=== PATIENT | female | born 1985 | race Caucasian/White ===

== ENCOUNTER 2017-05-19 13:54 | Outpatient (CLI) | payer OTHER ==
--- NOTE | 2017-05-19 15:48 | XRAY Report ---
DATE OF SERVICE: 05/19/2017 THREE VIEW LEFT KNEE: 05/19/2017 CLINICAL INDICATION: Pain. FINDINGS: AP, lateral, sunrise views of the left knee demonstrate no evidence of fracture or dislocation. The joint spaces are preserved. No effusion is present. IMPRESSION: NORMAL LEFT KNEE. TD: 05/19/2017 16:47
== END 2017-05-19 13:55 | disposition home or self-care (01) ==
LOC: DI 13:54
PROVIDERS: ATTEND Family Medicine
DX: M25.562 Pain in left knee (principal)

== ENCOUNTER 2023-08-17 14:25 | Outpatient (CLI) | payer OTHER ==
[2023-08-17 20:07] LABS: BASOPHILS # (AUTO) 0.1 10^3/uL (0.0-0.1); BASOPHILS % (AUTO) 1.3 %; EOSINOPHILS # (AUTO) 0.3 10^3/uL (0.0-0.7); EOSINOPHILS % (AUTO) 4.7 %; HCT - HEMATOCRIT 37.5 % (37.0-47.0); LYMPHOCYTES # (AUTO) 1.6 10^3/uL (1.5-3.5); LYMPHOCYTES % (AUTO) 30.5 %; MEAN CORPUSCULAR VOLUME 96.9 fL (81.0-99.0); MEAN PLATELET VOLUME 12.4 fL (7.9-10.8); MONOCYTES # (AUTO) 0.6 10^3/uL (0.0-1.0); NEUTROPHILS # (AUTO) 2.8 10^3/uL (1.5-6.6); NEUTROPHILS % (AUTO) 52.3 %; PLT - PLATELET COUNT 241 10^3/uL (130-450); RED BLOOD COUNT 3.87 10^6/uL (4.20-5.40); RED CELL DISTRIBUTION WIDTH 13.2 % (12.0-15.0); WHITE BLOOD COUNT 5.4 x10^3/uL (4.8-10.8)
[2023-08-17 20:32] LABS: THYROID STIMULATING HORMONE 2.23 uIU/mL (0.34-5.60)
[2023-08-17 20:50] LABS: ALBUMIN 4.3 g/dL (3.2-5.5); ALBUMIN/GLOBULIN RATIO 1.6 (1.0-2.2); ALKALINE PHOSPHATASE 49 IU/L (42-121); ALT ALANINE AMINOTRANSFERASE 11 IU/L (10-60); AST ASPARTATE AMINOTRANSFERASE 16 IU/L (10-42); BILIRUBIN,TOTAL 0.3 mg/dL (0.2-1.0); BUN - BLOOD UREA NITROGEN 8 mg/dL (6-20); CALCIUM 9.6 mg/dL (8.5-10.3); CARBON DIOXIDE - CO2 28 mmol/L (21-32); CHLORIDE 102 mmol/L (101-111); CHOL/HDL RATIO 2.5 (<4.4); CHOLESTEROL 168 mg/dL; CREATININE 0.7 mg/dL (0.6-1.3); GFR - MDRD 95 (>89); GLUCOSE 93 mg/dL (74-104); HDL CHOLESTEROL 68 mg/dL; LDL CHOLESTEROL,CALCULATED 85 mg/dL; LDL/HDL RATIO 1.3 (<4.4); POTASSIUM 3.9 mmol/L (3.5-4.5); SODIUM 137 mmol/L (135-145); TRIGLYCERIDES 75 mg/dL (48-352); VLDL CHOLESTEROL 15 mg/dL
== END 2023-08-17 14:26 | disposition home or self-care (01) ==
LOC: LAB.S 14:25
PROVIDERS: ATTEND Physician Assistant Medical
DX: Z13.9 Encounter for screening, unspecified (principal); E55.9 Vitamin D deficiency, unspecified
CPT/HCPCS: 36415; 80053; 80061; 82306; 83721; 84443; 85025

== ENCOUNTER 2023-10-26 14:08 | Outpatient (CLI) | payer BC ==
--- NOTE | 2023-10-26 15:42 | CT Report ---
PROCEDURE: Lumbar Spine WO INDICATIONS: LOW BACK PAIN TECHNIQUE: Noncontrast 3 mm thick sections acquired from the T12 level to the sacrum. Sagittal and coronal refo rmats were constructed. Dedicated oblique axial images were performed through the disk levels. Fo r radiation dose reduction, the following was used: automated exposure control, adjustment of mA and /or kV according to patient size. COMPARISON: Correlation is made with the accompanying imaging. FINDINGS: Image quality: Excellent. Bones: No acute vertebral body compression fractures. No suspicious lytic or blastic bony lesions. Central spinal caliber is of normal overall caliber. No pars defects. Minimal levoconvex lumbar scoliosis is seen. No significant AP alignment abnormality can be seen. T12-L1: Normal in appearance. L1-L2: Normal in appearance. L2-L3: Normal in appearance. L3-L4: No significant abnormality is seen. L4-L5: Mild loss of disc height is seen. Moderate disc bulge is seen, with a mild central disc extr usion. Mild to moderate facet hypertrophy is seen. Mild bilateral neural foraminal narrowing is seen . Moderate central canal narrowing is seen. L5-S1: Moderate loss of disc height is seen. Mild disc bulge is seen. Mild facet hypertrophy is s een. There is moderate left-sided and mild right-sided neuroforaminal narrowing. The central canal i s widely patent. Soft tissues: No retroperitoneal masses or hematomas. Visualized aorta is normal in caliber. 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 If it would be helpful for clinical management decision making, please consider a dedicated, schedule d lumbar MRI for further evaluation (assuming that there is no contraindication). Reviewed by: Navjot Ruano MD on 10/26/2023 2:40 PM ARELY Approved by: Navjot Ruano MD on 10/26/2023 2:40 PM AKDT Station ID: [id number]
== END 2023-10-26 14:09 | disposition home or self-care (01) ==
LOC: DI 14:08
PROVIDERS: ATTEND Neurological Surgery
DX: M47.26 Other spondylosis with radiculopathy, lumbar region (principal); M51.16 Intervertebral disc disorders with radiculopathy, lumbar region

== ENCOUNTER 2023-10-26 14:17 | Outpatient (CLI) | payer BC ==
--- NOTE | 2023-10-26 17:04 | XRAY Report ---
PROCEDURE: Lumbar Spine 4V INDICATIONS: LOW BACK PAIN TECHNIQUE: 4 views of the lumbar spine were acquired. COMPARISON: CT lumbar spine from today. FINDINGS: Surgical change: None. Bones: 5 [id number] vertebrae are present. There is normal bony alignment. No vertebral body co mpression fractures. No suspicious bony lesions. Flexion and extension views demonstrate somewhat di minished range of motion with no abnormal motion noted. Soft tissues: Overlying bowel gas pattern is normal. No suspicious soft tissue calcifications. Larg e diffuse fecal load. IMPRESSION: Unremarkable lumbar spine plain films. Diminished range of motion on flexion and extension without ab normal motion. Constipation. Reviewed by: Niko Bryant MD on 10/26/2023 5:02 PM PDT Approved by: Niko Bryant MD on 10/26/2023 5:02 PM PDT Station ID: [id number]
== END 2023-10-26 14:18 | disposition home or self-care (01) ==
LOC: DI 14:17
PROVIDERS: ATTEND Neurological Surgery
DX: M47.26 Other spondylosis with radiculopathy, lumbar region (principal); M51.16 Intervertebral disc disorders with radiculopathy, lumbar region